=== PATIENT | female | born 1945 | race Caucasian/White ===

== ENCOUNTER → 2016-12-03 | Outpatient (CLI) | payer MEDICARE, BC ==
[~2016-12-03] MED LIST: ALBUTEROL2.5 MG/0.5 INH; BUSPIRONE HCL7.5 MG PO; ELAVIL 10 MG TA10 MG PO; ELIQUIS5 MG PO; FERROUS SULFAT325 M2 PO; ISOSORBIDE MON120 MG PO; LEVAQUIN500 MG PO; LEVOTHYROXINE125 MCG PO; LISINOPRIL40 MG PO; LORTAB 5-325 M1 EACH PO; NASONEX17 GM; NEURONTIN 400400 MG PO; NITROSTAT0.4 MG SL; PROPANTHELINE B15 MG PO; PROTONIX 40 MG40 M1 PO; PULMICORT0.5 MG/21 INH; RYTHMOL TAB 15150 MG PO; SOTALOL80 MG PO; SPIRONOLACTONE25 MG PO; TYLENOL 500 MG500 MG PO; VENLAFAXINE HCL75 M2 PO; VENLAFAXINE HCL75 MG PO; VITAMIN D 11000 UNIT PO
== END ==
LOC: HEART 5 11:01
DX: J44.9 Chronic obstructive pulmonary disease, unspecified (principal); J98.4 Other disorders of lung; F17.210 Nicotine dependence, cigarettes, uncomplicated; R94.2 Abnormal results of pulmonary function studies
CPT/HCPCS: 94060; 94729

== ENCOUNTER → 2017-01-28 | Outpatient (CLI) | payer MEDICARE, BC | LOC: KOH-I 12:55 | DX: R13.10 Dysphagia, unspecified (principal); E04.1 Nontoxic single thyroid nodule | CPT/HCPCS: 76536 ==

== ENCOUNTER → 2017-01-31 | Outpatient (CLI) | payer MEDICARE, BC | LOC: NM 14:24 | DX: R13.10 Dysphagia, unspecified (principal) | CPT/HCPCS: 78264; A9541 ==

== ENCOUNTER → 2017-02-25 | Outpatient (CLI) | payer MEDICARE, BC ==
[2017-02-25 09:16] LABS: HEMOGLOBIN 12.3 gm/dl (12.3-15.3); RED BLOOD COUNT 4.46 M/UL (4.00-5.10); WHITE BLOOD COUNT 4.5 K/UL (4.5-11.0)
== END ==
LOC: LAB 08:17 → US 09:30
PROVIDERS: Physician Assistant Surgical
DX: E04.1 Nontoxic single thyroid nodule (principal); I48.91 Unspecified atrial fibrillation; I10 Essential (primary) hypertension; R10.13 Epigastric pain; R11.0 Nausea; K44.9 Diaphragmatic hernia without obstruction or gangrene
CPT/HCPCS: 10022; 36415; 76536; 85025; 85610; 85730

== ENCOUNTER 2020-10-28 14:20 | Inpatient (IN) | payer MEDICARE, BC ==
[~2020-10-28] VITALS: Ht 155 cm; Wt 126.1 kg
[~2020-10-28 14:20] MED LIST changes: +ALDACTONE25 MG PO; +BACTRIM DS TAB1 EACH PO; +BUMETANIDE1 MG PO; +BUSPAR 10MG10 MG PO; -BUSPIRONE HCL7.5 MG PO; +ECOTRIN81 MG PO; -ELAVIL 10 MG TA10 MG PO; +ELAVIL 50 MG TA50 MG PO; +HYDROCODON-ACE1 EAC6 PO; +KEFLEX CAP 500500 MG PO; +LASIX40 MG PO; -LORTAB 5-325 M1 EACH PO; +NEURONTIN600 MG PO; +OMNICEF 300 MG300 MG PO; +SYNTHROID 150150 MCG PO; +TRIMETHOPRIM100 MG PO; -VITAMIN D 11000 UNIT PO; +VITAMIN D325 MC6 PO
[2020-10-28 15:15] LABS: HEMOGLOBIN 13.3 gm/dl (12.3-15.3); RED BLOOD COUNT 4.68 M/UL (4.00-5.10); WHITE BLOOD COUNT 4.6 K/UL (4.5-11.0)
[2020-10-28 15:45] LABS: BUN/CREATININE RATIO 20 (0-10)
[2020-10-28] MEDS ORDERED: ANORO ELLIPTA1 EACH INH (18:58)
[2020-10-28] MEDS ORDERED: COMBIVENT RESPIM4 GM INH (19:00)
[2020-10-28] MEDS ORDERED: MYSOLINE50 MG PO (19:05)
[2020-10-29 02:39] LABS: HEMOGLOBIN 13.2 gm/dl (12.3-15.3); RED BLOOD COUNT 4.64 M/UL (4.00-5.10); WHITE BLOOD COUNT 5.3 K/UL (4.5-11.0)
[2020-10-30 04:07] LABS: RED BLOOD COUNT 4.54 M/UL (4.00-5.10); WHITE BLOOD COUNT 6.9 K/UL (4.5-11.0)
[2020-10-31 04:12] LABS: HEMOGLOBIN 13.4 gm/dl (12.3-15.3); RED BLOOD COUNT 4.7 M/UL (4.00-5.10); WHITE BLOOD COUNT 5.6 K/UL (4.5-11.0)
[2020-11-01 03:27] LABS: HEMOGLOBIN 13.4 gm/dl (12.3-15.3); RED BLOOD COUNT 4.69 M/UL (4.00-5.10); WHITE BLOOD COUNT 4.5 K/UL (4.5-11.0)
[2020-11-02 03:16] LABS: HEMOGLOBIN 14.4 gm/dl (12.3-15.3); RED BLOOD COUNT 5.01 M/UL (4.00-5.10); WHITE BLOOD COUNT 5.3 K/UL (4.5-11.0)
[2020-11-02] MEDS ORDERED: DOCUSATE SODIU100 MG PO (10:11)
[2020-11-02] MEDS ORDERED: HYDROCODON-ACE1 EAC6 PO (10:11)
[2020-11-02] MEDS ORDERED: HUMIBID LA TAB600 MG PO (10:11)
[2020-11-02] MEDS ORDERED: ISOSORBIDE MON120 MG PO (10:11)
[2020-11-02] MEDS ORDERED: NEURONTIN600 MG PO (10:11)
== END 2020-11-02 15:50 | disposition home or self-care (01) | DRG 291 ==
LOC: ER1 14:20 → CDU 17:36 → MED SURG 4 17:36
PROVIDERS: Internal Medicine; Physician Assistant; ADMIT Family Medicine
DX: I13.0 Hypertensive heart and chronic kidney disease with heart failure and stage 1 through stage 4 chronic kidney disease, or unspecified chronic kidney disease (principal); I50.43 Acute on chronic combined systolic (congestive) and diastolic (congestive) heart failure; N39.0 Urinary tract infection, site not specified; J84.9 Interstitial pulmonary disease, unspecified; N17.9 Acute kidney failure, unspecified; N18.30 Chronic kidney disease, stage 3 unspecified; Z99.81 Dependence on supplemental oxygen; Z20.822 Contact with and (suspected) exposure to COVID-19; I87.8 Other specified disorders of veins; M19.90 Unspecified osteoarthritis, unspecified site; I25.10 Atherosclerotic heart disease of native coronary artery without angina pectoris; E03.9 Hypothyroidism, unspecified; F32.9 Major depressive disorder, single episode, unspecified; Z79.01 Long term (current) use of anticoagulants; D69.6 Thrombocytopenia, unspecified; Z79.899 Other long term (current) drug therapy; K21.9 Gastro-esophageal reflux disease without esophagitis; F41.9 Anxiety disorder, unspecified; G89.29 Other chronic pain; Z90.49 Acquired absence of other specified parts of digestive tract; Z90.710 Acquired absence of both cervix and uterus; Z82.3 Family history of stroke; Z82.49 Family history of ischemic heart disease and other diseases of the circulatory system; Z88.1 Allergy status to other antibiotic agents; Z88.8 Allergy status to other drugs, medicaments and biological substances
CPT/HCPCS: ECHO; 0240U; 36415; 36600; 71045; 80048; 80053; 81001; 82550; 82553; 82570; 82803; 83874; 83880; 84156; 84439; 84443; 84484; 85025; 85027; 93005; 93306; 94640; 94664; 94760; 96374; 96375; 97110-GP-CQ; 97116-GP-CQ; 97162; 99285; J1644; J1940; J2930; U0002

== ENCOUNTER → 2021-03-02 | Outpatient (CLI) | payer MEDICARE, BC ==
[~2021-03-02] MED LIST changes: +ANORO ELLIPTA1 EACH INH; +COMBIVENT RESPIM4 GM INH; +DOCUSATE SODIU100 MG PO; +HUMIBID LA TAB600 MG PO; +MYSOLINE50 MG PO
== END ==
LOC: KOH-I 14:58
DX: E89.0 Postprocedural hypothyroidism (principal); E04.1 Nontoxic single thyroid nodule
CPT/HCPCS: 76536

== ENCOUNTER 2021-08-11 16:05 | Observation (INO) | payer MEDICARE, BC ==
[2021-08-11 16:39] LABS: HEMOGLOBIN 13.9 gm/dl (12.3-15.3); RED BLOOD COUNT 4.64 M/UL (4.00-5.10); WHITE BLOOD COUNT 4.1 K/UL (4.5-11.0)
[2021-08-11] MEDS ORDERED: LASIX40 MG PO (22:09)
== END 2021-08-14 00:47 | disposition home or self-care (01) ==
LOC: ER1 16:05 → CDU 21:18
PROVIDERS: Physician Assistant; ADMIT Family Medicine
DX: L03.116 Cellulitis of left lower limb (principal); I48.91 Unspecified atrial fibrillation; I11.0 Hypertensive heart disease with heart failure; I50.9 Heart failure, unspecified; E11.9 Type 2 diabetes mellitus without complications; J44.9 Chronic obstructive pulmonary disease, unspecified
CPT/HCPCS: 80053; 85025; 99283; G0378; J3370

== ENCOUNTER → 2021-08-22 | Outpatient (CLI) | payer MEDICARE, BC | LOC: KOH-I 07-21 08:30 | DX: I71.4 Abdominal aortic aneurysm, without rupture (principal); N28.1 Cyst of kidney, acquired; R16.1 Splenomegaly, not elsewhere classified | CPT/HCPCS: 74150 ==

== ENCOUNTER → 2021-08-30 | Outpatient (CLI) | payer MEDICARE, BC | LOC: EXRD 11:29 | DX: N28.1 Cyst of kidney, acquired (principal) | CPT/HCPCS: 76775 ==

== ENCOUNTER 2021-10-18 16:59 | Emergency (ER) | payer MEDICARE, BC ==
[2021-10-18 19:08] LABS: HEMOGLOBIN 13.1 gm/dl (12.3-15.3); RED BLOOD COUNT 4.62 M/UL (4.00-5.10)
[2021-10-18 19:45] LABS: BUN/CREATININE RATIO 21 (0-10)
== END 2021-10-18 21:20 | disposition home or self-care (01) ==
LOC: ER1 16:59
PROVIDERS: Preventive Medicine Occupational Medicine
DX: R53.83 Other fatigue (principal); E11.9 Type 2 diabetes mellitus without complications; Z20.822 Contact with and (suspected) exposure to COVID-19
CPT/HCPCS: 71045; 80053; 81001; 82550; 82553; 83690; 83874; 84484; 85025; 85652; 86140; 87086; 99283; Q9967; U0002

== ENCOUNTER → 2022-03-13 | Outpatient (CLI) | payer MEDICARE, BC | LOC: EXRD 13:00 | DX: N28.1 Cyst of kidney, acquired (principal) | CPT/HCPCS: 76775 ==

== ENCOUNTER 2022-03-22 14:21 | Inpatient (IN) | payer MEDICARE, BC ==
[~2022-03-22] VITALS: Ht 154.9 cm; Wt 94.8 kg
[~2022-03-22 14:21] MED LIST changes: +VENLAFAXINE HCL75 M1 PO; -VENLAFAXINE HCL75 M2 PO
[2022-03-22 15:09] LABS: HEMOGLOBIN 11.1 gm/dl (12.3-15.3); RED BLOOD COUNT 4.3 M/UL (4.00-5.10); WHITE BLOOD COUNT 4.3 K/UL (4.5-11.0)
[2022-03-22 15:32] LABS: BUN/CREATININE RATIO 16 (0-10)
[2022-03-22] MEDS ORDERED: LISINOPRIL2.5 MG PO (21:48)
[2022-03-22] MEDS ORDERED: GABAPENTIN600 MG PO (21:52)
[2022-03-22] MEDS ORDERED: SOTALOL120 MG PO (21:53)
[2022-03-23 06:40] LABS: HEMOGLOBIN 10.9 gm/dl (12.3-15.3); RED BLOOD COUNT 4.23 M/UL (4.00-5.10)
[2022-03-23 07:03] LABS: BUN/CREATININE RATIO 18 (0-10)
[2022-03-23] MEDS ORDERED: METRONIDAZOLE500 MG PO (09:31)
[2022-03-23] MEDS ORDERED: ISOSORBIDE MON120 MG PO (12:13)
[2022-03-23] MEDS ORDERED: SYNTHROID175 MCG PO (12:15)
[2022-03-24 06:01] LABS: HEMOGLOBIN 11.3 gm/dl (12.3-15.3); RED BLOOD COUNT 4.39 M/UL (4.00-5.10); WHITE BLOOD COUNT 3.6 K/UL (4.5-11.0)
[2022-03-24 06:22] LABS: BUN/CREATININE RATIO 16 (0-10)
[2022-03-25 05:53] LABS: HEMOGLOBIN 10.6 gm/dl (12.3-15.3); RED BLOOD COUNT 4.12 M/UL (4.00-5.10); WHITE BLOOD COUNT 3.6 K/UL (4.5-11.0)
[2022-03-25 06:19] LABS: BUN/CREATININE RATIO 13 (0-10)
[2022-03-26 06:08] LABS: HEMOGLOBIN 10.8 gm/dl (12.3-15.3); RED BLOOD COUNT 4.19 M/UL (4.00-5.10); WHITE BLOOD COUNT 4.4 K/UL (4.5-11.0)
[2022-03-26 06:28] LABS: BUN/CREATININE RATIO 14 (0-10)
[2022-03-27 09:45] LABS: HEMOGLOBIN 11.3 gm/dl (12.3-15.3); RED BLOOD COUNT 4.31 M/UL (4.00-5.10)
[2022-03-27 09:47] LABS: WHITE BLOOD COUNT 5.7 K/UL (4.5-11.0)
[2022-03-27 10:12] LABS: BUN/CREATININE RATIO 14 (0-10)
[2022-03-28] MEDS ORDERED: COLACE100 MG PO (08:55)
[2022-03-28] MEDS ORDERED: IBUPROFEN600 MG PO (08:55)
[2022-03-28 12:02] LABS: BUN/CREATININE RATIO 18 (0-10)
== END 2022-03-28 14:07 | disposition home or self-care (01) | DRG 348 ==
LOC: ER1 14:21 → CDU 20:29 → MED SURG 4 20:29
PROVIDERS: Internal Medicine; Physician Assistant Medical; Surgery; ADMIT Family Medicine
PROC: 06BY0ZC Excision of Hemorrhoidal Plexus, Open Approach (ICD-10-PCS; principal; 2022-03-26 11:45)
DX: K57.12 Diverticulitis of small intestine without perforation or abscess without bleeding (principal); D62 Acute posthemorrhagic anemia; J96.11 Chronic respiratory failure with hypoxia; K62.5 Hemorrhage of anus and rectum; K64.8 Other hemorrhoids; J44.9 Chronic obstructive pulmonary disease, unspecified; I25.10 Atherosclerotic heart disease of native coronary artery without angina pectoris; G47.33 Obstructive sleep apnea (adult) (pediatric); E03.9 Hypothyroidism, unspecified; I10 Essential (primary) hypertension; R00.0 Tachycardia, unspecified; E87.5 Hyperkalemia; Z99.81 Dependence on supplemental oxygen; Z79.899 Other long term (current) drug therapy; E78.5 Hyperlipidemia, unspecified
CPT/HCPCS: 36415; 80048; 80053; 81001; 82962; 83690; 83735; 84132; 85025; 85027; 85610; 85652; 85730; 86140; 87077; 87086; 87186; 93005; 94640; 94664; 94760; 96365; 96375; 99285; J0690; J1335; J2001; J2270; J2370; J2405; J2704; J2765; J3010; J3480; Q9967

== ENCOUNTER 2022-04-07 13:32 | Emergency (ER) | payer MEDICARE, BC ==
[~2022-04-07 13:32] MED LIST changes: +COLACE100 MG PO; +GABAPENTIN600 MG PO; +IBUPROFEN600 MG PO; +LISINOPRIL2.5 MG PO; +METRONIDAZOLE500 MG PO; +SOTALOL120 MG PO; +SYNTHROID175 MCG PO
[2022-04-07 13:54] LABS: RED BLOOD COUNT 3.22 M/UL (4.00-5.10); WHITE BLOOD COUNT 9.3 K/UL (4.5-11.0)
[2022-04-07 13:56] LABS: HEMOGLOBIN 7.9 gm/dl (12.3-15.3)
[2022-04-07 14:27] LABS: BUN/CREATININE RATIO 27 (0-10)
== END 2022-04-07 16:15 | disposition short-term general hospital (02) ==
LOC: ER1 13:32
PROVIDERS: Emergency Medicine
DX: K62.5 Hemorrhage of anus and rectum (principal); D64.9 Anemia, unspecified; I95.9 Hypotension, unspecified; I48.91 Unspecified atrial fibrillation; Z20.822 Contact with and (suspected) exposure to COVID-19; E11.9 Type 2 diabetes mellitus without complications; I10 Essential (primary) hypertension; Z95.0 Presence of cardiac pacemaker
CPT/HCPCS: 36430; 71045; 80053; 82150; 82550; 82553; 83605; 83690; 83880; 84484; 85025; 85610; 85730; 86850; 86900; 86901; 86920; 87040; 96374; 99285; C9113; J2543; P9016; Q9967; U0002